=== PATIENT | female | born 1990 | race African-American/Black ===

== ENCOUNTER 2017-07-31 10:58 | Emergency (ER) | payer MEDICAID ==
[~2017-07-31] VITALS: Ht 165.1 cm; Wt 72.0 kg
[2017-07-31 11:21] VITALS: BP 109/83
[2017-07-31] MEDS ORDERED: KETOROLAC 60MG/2ML VIAL IM ONE (12:15)
[2017-07-31 13:09] LABS: CLARITY URINE CLEAR (CLEAR); COLOR URINE YELLOW (YELLOW); KETONES URINE TRACE (NEGATIVE); LEUKOCYTE ESTERASE URINE NEGATIVE (NEGATIVE); NITRITE URINE NEGATIVE (NEGATIVE); OCCULT BLOOD URINE NEGATIVE (NEGATIVE); PROTEIN URINE 1+ (NEGATIVE); SPECIFIC GRAVITY URINE 1.028 (1.005-1.030)
== END 2017-07-31 14:09 | disposition home or self-care (01) ==
LOC: ER 11:36
DX: K08.89 Other specified disorders of teeth and supporting structures (principal); R10.9 Unspecified abdominal pain
CPT/HCPCS: 81001; 81025; 96372; 99283; J1885